=== PATIENT | male | born 2000 | race Two or more races ===

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

== ENCOUNTER → 2020-10-22 | Emergency (ER) | payer MEDICAID ==
[~2020-10-22] VITALS: Ht 177.8 cm; Wt 72.6 kg
[~2020-10-22] MED LIST: MONODOX100 MG PO
[2020-10-22 21:13] VITALS: BP 129/78; Ht 177.8 cm; Wt 72.6 kg
[2020-10-22 21:27] LABS: BILIRUBIN NEGATIVE (NEGATIVE); KETONE NEGATIVE (NEGATIVE); NITRITE NEGATIVE (NEGATIVE); UROBILINOGEN NORMAL mg/dL (< 2)
== END | disposition home or self-care (01) ==
LOC: D.ER 20:40
PROVIDERS: Emergency Medicine
DX: N50.811 Right testicular pain (principal); N45.1 Epididymitis